=== PATIENT | female | born 1975 | race Caucasian/White ===

== ENCOUNTER 2024-05-25 11:16 | Emergency (ER) | payer OTHER, SELFPAY ==
[2024-05-25] VITALS (8 sets, daily range): BP systolic 139–155; BP diastolic 82–100; BMI 36.7
--- NOTE | 2024-05-25 12:39 | EDRN ---
Unable to obtain IV access or labs w/IV VAT RN called and responded will be down.
--- NOTE | 2024-05-25 12:42 | EDRN ---
Rosana REBOLLEDO in room w/pt.
--- NOTE | 2024-05-25 12:47 | EDRN ---
IV VAT RN in room w/pt at this time.
[2024-05-25 13:11] LABS: % Basophils 0.6 % (0-2); % Eosinophils 0.4 % (0-6); % Lymphocytes 33.8 % (20.5-51.1); % Monocytes 8.7 % (1.7-9.3); % Neutrophils 56.5 % (42.2-75.2); Absolute Lymphocytes 1.6 10^3/uL (1.2-3.4); Absolute Monocytes 0.4 10^3/uL (0.1-0.6); Absolute Neutrophils 2.6 10^3/uL (1.4-6.5); Hematocrit 38.4 % (37.0-47.0); Hemoglobin 14.2 g/dL (12.0-16.0); Mean Corpuscular Hgb 30.5 pg (27.0-31.0); Mean Corpuscular Volume 82.4 fL (81.0-99.0); Mean Platelet Volume 8.9 fL (7.4-10.4); Nucleated Red Blood Cells % 0 %; Platelet Count 341 10^3/uL (130-400); Red Blood Cell Count 4.66 10^6/uL (4.20-5.40); Red Cell Dist. Width 11.9 % (11.5-14.5); White Blood Cell Count 4.6 10^3/uL (4.8-10.8)
--- NOTE | 2024-05-25 13:45 | EDRN ---
Pt requested to drink, Rosana REBOLLEDO said pt could and pt received a cup of water at this time.
[2024-05-25 14:12] LABS: HCG, Serum Qualitative Screen Negative
[2024-05-25 14:23] LABS: ALT (SGPT) 19 U/L (0-35); AST (SGOT) 28 U/L (14-36); Albumin 4.7 g/dl (3.5-5.0); Alkaline Phosphatase 58 U/L (38-126); Blood Urea Nitrogen 10 mg/dl (7-17); Calcium 9.7 mg/dl (8.4-10.2); Carbon Dioxide 28 mmol/L (22-30); Chloride 98 mmol/L (98-107); Estimated Creatinine Clearance 112 ml/min; Glucose 95 mg/dl (70-99); Potassium 3.7 mmol/L (3.5-5.1); Sodium 137 mmol/L (135-145); Total Bilirubin 1.1 mg/dl (0.2-1.3); Total Protein 7.8 g/dl (6.3-8.2); eGFR > 60.00
[2024-05-25 14:28] LABS: Troponin I < 0.012 ng/ml
--- NOTE | 2024-05-25 15:14 | EDRN ---
Rosana REBOLLEDO in room w/pt at this time.
--- NOTE | 2024-05-25 15:44 | ED.GENMED ---
History of Present Illness
General
Chief Complaint: Chest Pain
Source: patient and spouse
Exam Limitations: none
Time Seen by Provider: 05/25/24 12:04
Nursing documentation reviewed up to this point in time: agreed with
History of Present Illness
History of Present Illness:
Patient is a 48-year-old female with past medical history of anxiety and panic disorder as well as hypertension presenting to the emergency department today with concerns of chest tightness over the past few days. Denies significant shortness of
breath. But does have some increased pressure with deep breaths. Has been going through a lot of stress recently was recently started on hydrochlorothiazide for high blood pressure. Denies nausea vomiting numbness weakness.
Review of Systems
Review of Systems
Allergies reviewed?: Yes
All Other Systems: ROS reviewed and negative except as documented in HPI and ROS
Phy Exam
Physical Exam
Physical Exam:
GENERAL: Alert , in no apparent distress
EYE: pupils equal and reactive
NECK: Supple, no significant adenopathy.
ENT: o/p clr, mmm.
CARDIAC: Regular rate and rhythm .
LUNGS: Clear breath sounds bilaterally, no acute respiratory distress, no wheezes/rales/rhonchi
ABDOMEN: Soft, without focal tenderness, no r/g, no cvat
NEUROLOGICAL: Alert and oriented, no focal neuro deficits
SKIN: Warm and dry, skin intact.
MUSCULOSKELETAL: No edema, well perfused.
PSYCH: Normal and appropriate interaction.
Scores
Heart Score for Chest Pain Patients
STEMI patient?: No
History: Slightly or Non-Suspicious
ECG: Normal
Age: >45 - <65 years
Risk Factors: 1 or 2 Risk Factors
Troponin: </= Normal Limit
Heart Score for Chest Pain Patients: 2
Heart Score Risk: 2.5% MACE over next 6 weeks
Course
Orders/Labs/Results
Orders:
Orders
05/25/24 11:18
Electrocardiogram (*1) Urgent
Reason for Study: Chest Pain
EKG- Treatment ONCE
05/25/24 12:08
Cardiac Monitoring- Treatment ONCE
05/25/24 12:14
Chest [CR Chest - 2 Views ] Urgent
Comment:
Reason For Exam: cp
05/25/24 12:25
Test Result ONCE
05/25/24 12:59
Complete Blood Count/With Diff Urgent
05/25/24 13:58
Comprehensive Metabolic Panel Urgent
HCG, Serum Qualitative Screen Urgent
Troponin I Urgent
Abnormal Lab Results
05/25/24
12:59
WBC 4.6 L 10^3/uL
(4.8-10.8)
05/25/24 12:59
05/25/24 13:58
Vital Signs
Initial and Last Documented VS:
Initial Vital Signs
Temp Pulse Resp BP Pulse Ox
98.2 F 82 18 155/100 98
05/25/24 11:22 05/25/24 11:22 05/25/24 11:22 05/25/24 11:22 05/25/24 11:22
Last Documented Vital Signs
Temp Pulse Resp BP Pulse Ox
98.2 F 66 13 139/82 98
05/25/24 11:22 05/25/24 15:00 05/25/24 15:00 05/25/24 15:00 05/25/24 15:00
MDM/Problems Addressed
MDM/Problems Addressed:
48-year-old female presenting to the emergency department today with concerns of chest tightness for multiple days. Not specifically exertional no ongoing shortness of breath nausea vomiting diaphoresis. Upon arrival blood pressure mildly elevated
otherwise vital signs are normal. Labs were obtained and normal troponin normal EKG normal and chest x-ray normal. Patient very low risk for any ACS or PE and PERC negative. Patient may have symptoms secondary to anxiety was advised for close
outpatient follow-up return precautions given.
*Critical Care Note
Total Time (30-74mins, 75-104mins- exclusive of procedures): Not Applicable
ED Attending Note
-
Portions of this chart may have been created with voice recognition software.� Occasional wrong word or��sound alike� substitutions may have occurred due to the inherent limitations of voice recognition software.
Discharge Plan
Departure
Patient Disposition: Home (Routine Discharge)
Date of Disposition: 05/25/24
Time of Disposition: 15:46
Patient with high blood pressure during this ER visit?: No
Condition: Good
Covid-19: Not Applicable
Discharge Problem:
Chest pain
Instructions: Chest Pain PCP Follow Up
Prescriptions:
New
famotidine 20 mg tablet
20 mg PO BID Qty: 14 0RF
ibuprofen 600 mg tablet
600 mg PO Q8H PRN (Reason: Pain) Qty: 10 0RF
alprazolam [Xanax] 0.25 mg tablet
0.25 mg PO BID PRN (Reason: anxiety) Qty: 5 0RF
Referrals:
Camilo Prater MD [Active] - Follow up in 1 week
Sandee Casillas DO [Family Provider] -
Activity Restrictions/Additional Instructions:
You came to the emergency department today with concerns of chest tightness. Here you had a reassuring assessment. Please follow closely as an outpatient. Return to the emergency department for any worsening, new or concerning symptoms.
Interventions
Interventions:
*Risk Screen - Suicide Last Done: 05/25/24 11:22
*General Assessment Last Done: 05/25/24 12:14
*Neglect/Abuse Screening Last Done: 05/25/24 11:22
ED- Fall Risk Assessment Last Done: 05/25/24 12:14
*ED COVID-19 Vaccine History Last Done: 05/25/24 12:14
ED- Cardiac Assessment Last Done: 05/25/24 12:14
Discharge Date and Time
Print Language: BENINESE
== END 2024-05-25 15:55 | disposition home or self-care (01) ==
LOC: EMR 11:16
PROVIDERS: Physician Assistant; EMERGENCY PHYSICIAN Emergency Medicine; FAMILY PHYSICIAN Internal Medicine
DX: R07.89 Other chest pain (principal); F41.9 Anxiety disorder, unspecified; I10 Essential (primary) hypertension
CPT/HCPCS: 99285; 71046; 80053; 84484; 84703; 85025; 93005

== ENCOUNTER 2024-05-25 21:26 | Observation (INO) | payer OTHER, SELFPAY ==
[2024-05-25 19:03] VITALS: BP 106/70
[2024-05-25 19:05] VITALS: BMI 36.5
--- NOTE | 2024-05-25 19:21 | ED.GENMED ---
History of Present Illness
General
Chief Complaint: Fainting/Passed Out
Source: patient
Exam Limitations: none
Time Seen by Provider: 05/25/24 19:10
History of Present Illness
History of Present Illness:
This is a 48 year old female that comes in with c/o syncope. States that she was here earlier today with chest pressure. States that she was discharged with Xanax, Pepcid and Ibuprofen. States that they went to get the medication and then went home.
States that they were sitting at the table and she went to get up and she passed out. States that she must have sat down in the chair and when she woke up her head was on the table. States that she was told that she was out for about 1 min. States
that she has chest pressure, slight SOB, headache, lightheadedness. Patient has 324 of aspirin by EMS. Denies any fever, chills, abd pain, nausea, vomiting, diarrhea, urinary burning.
Past History
Past History
ED Past Medical History: Asthma (with allergies), HTN and Psychiatric (Anxiety, Panic disorder)
ED Past Surgical History: Gynecological (D&C)
Social History
Tobacco: Non-smoker
Alcohol: Occasional
Personal:
Living: with family
Review of Systems
Review of Systems
All Other Systems: ROS reviewed and negative except as documented in HPI and ROS
Constitutional: Reports chills; Denies fever
EENT: Reports no symptoms
Respiratory: Reports trouble breathing; Denies cough
Cardiac: Reports chest pain
ABD/GI: Reports no symptoms; Denies abdominal pain, nausea, vomiting or diarrhea
: Reports no symptoms; Denies dysuria, frequency or urgency
Musculoskeletal: Reports no symptoms
Skin: Reports no symptoms
Neurological: Reports dizzy (Lightheaded) and headache
Psychiatric: Reports no symptoms
Phy Exam
General Physical Exam
General Presentation: well appearing and no apparent distress
General age: appears stated age
General Skin: warm and dry
General Habitus: normal
General Mental: alert
General Hydration: appears well hydrated
ENT Exam
ENT Exam: TM's normal, pharynx normal and neck supple
Eye Exam
Eye Exam: EOMI
Cardiovascular Exam
Cardiovascular Exam: regular rate/rhythm, no edema, no murmur and normal peripheral pulses
Pulmonary Exam
Pulmonary Exam: lungs clear, no respiratory distress, no rales, chest non tender, no crackles, no rhonchi, no wheezing and no cough
Gastrointestinal Exam
Gastrointestinal Exam: normal bowel sounds, non tender, soft, no organomegaly, no pulsatile mass and non distended
Musculoskeletal Exam
Musculoskeletal Exam: full ROM and no edema
Skin Exam
Skin Exam: normal color, warm/dry, no rash and no petechia
Psychiatric Exam
Psychiatric Exam: normal mood/affect
Course
Orders/Labs/Results
Orders:
Orders
05/25/24 19:02
EKG [Electrocardiogram (*1)] Urgent
Reason for Study: Syncope
05/25/24 19:03
EKG- Treatment ONCE
05/25/24 19:13
Cardiac Monitoring- Treatment ONCE
IV Insert/Care/Rem.- Treatment PRN
O2 Therapy [RESP] Urgent
Titrate/Wean O2 to maintain O2 sat greater than (%): 90
Special Instructions: Maintain sats >/=90%
Pulse Ox/spot Check [RESP] Urgent
Quantity: 1
Special Instructions: ON ROOM AIR
05/25/24 19:14
Complete Blood Count/With Diff Urgent
Troponin I Urgent
05/25/24 19:21
Orthostatic VS- Treatment ONCE
0.9% Sodium Chloride 500 ml [Nss] 500 ml IV BOLUS
05/25/24 19:32
Aspirin 325 mg PO NOW STA
05/25/24 19:34
Urinalysis Reflex To Culture Urgent
Date Specimen was Collected: 05/25/24
Time Specimen was Collected: 19:31
Urine Microscopic Reflex Cult Urgent
05/25/24 19:40
Comprehensive Metabolic Panel Urgent
05/25/24 20:05
Morphine Sulfate 2 mg IV NOW STA
Abnormal Lab Results
05/25/24 05/25/24 05/25/24
19:14 19:34 19:40
Hct 35.8 L %
(37.0-47.0)
Potassium 3.0 L mmol/L
(3.5-5.1)
Glucose 130 H mg/dl
(70-99)
Urine Ketones 2+ A
(Negative)
Ur Occult Blood Reflex 1+ A
(Negative)
Urine RBC 3-6 A /HPF
(0-2)
Urine Bacteria (Reflex) Few A
(Negative)
05/25/24 19:14
05/25/24 19:40
Hypokalemia, Glucose nonfasting. Urine negative for infection. Troponin <0.012,
Vital Signs
Initial and Last Documented VS:
Initial Vital Signs
Temp Pulse Resp BP Pulse Ox
98 F 70 14 106/70 100
05/25/24 19:03 05/25/24 19:03 05/25/24 19:03 05/25/24 19:03 05/25/24 19:03
Last Documented Vital Signs
Temp Pulse Resp BP Pulse Ox
98 F 70 11 111/80 99
05/25/24 19:03 05/25/24 20:00 05/25/24 20:00 05/25/24 20:00 05/25/24 20:00
MDM/Problems Addressed
Differential Diagnosis Includes:
Syncope, Cardiac arrhythmia
MDM/Problems Addressed:
This is a 48 year old female that was here earlier today with chest pressure. Patient was discharged and told to follow up with the [employer]. Patient got her medication that she was prescribed and went home to eat. States that she went to get up
from the table and passed out. State that she was told she was out for about 1 min and that she must have sat down in the chair. States that she still has chest pressure.
Will repeat labs, orthostatic and admit
Back into see patient. Explained that again her blood work is normal. Will admit patient for further evaluation. Hospitalist notified.
Chronic conditions affecting care: HTN
Acute Exacerbation and/or Progression of Chronic Illness:
NA
*Pulse Oximetry
Patient hypoxic: no
*EKG
Interpreted by ED Provider?: Yes
Heart Rate: 70
Rate: normal
Rhythm: sinus
[place]: left axis deviation
Interval: normal interval
QRS Pattern: normal QRS
Ischemia: no ischemia (Checked by Aby)
*Inspector Machine Cut Glass Interpretation
Rate: normal
Heart Rate: 80
*Critical Care Note
Total Time (30-74mins, 75-104mins- exclusive of procedures): Not Applicable
ED Attending Note
-
Portions of this chart may have been created with voice recognition software.� Occasional wrong word or��sound alike� substitutions may have occurred due to the inherent limitations of voice recognition software.
Discharge Plan
Departure
Patient Disposition: Admit
Date of Disposition: 05/25/24
Time of Disposition: 20:12
Admit to: Telemetry
Presentation/result/management discussed w/ accepting MD/DO: Hospitalist
Patient with high blood pressure during this ER visit?: No
Condition: Good
Covid-19: Not Applicable
Discharge Problem:
Chest pain, Syncope and collapse
Prescriptions:
No Action
famotidine 20 mg tablet
20 mg PO BID Qty: 14 0RF
ibuprofen 600 mg tablet
600 mg PO Q8H PRN (Reason: Pain) Qty: 10 0RF
alprazolam [Xanax] 0.25 mg tablet
0.25 mg PO BID PRN (Reason: anxiety) Qty: 5 0RF
multivitamin Tablet
1 tab PO DAILY
cetirizine [Zyrtec] 10 mg Tablet
10 mg PO DAILY
fluticasone propionate [Flonase] 50 mcg/actuation [place],Suspension
1 spray INTRANASAL DAILY
zinc
1 tab PO DAILY
Referrals:
Sandee Casillas DO [Family Provider] -
Interventions
Interventions:
*Risk Screen - Suicide Last Done: 05/25/24 19:03
*General Assessment Last Done: 05/25/24 19:03
*Neglect/Abuse Screening Last Done: 05/25/24 19:03
ED- Fall Risk Assessment Last Done: 05/25/24 19:23
*ED COVID-19 Vaccine History Last Done: 05/25/24 19:03
ED- Cardiac Assessment Last Done: 05/25/24 19:21
ED- Neurological Assessment Last Done: 05/25/24 19:21
Discharge Date and Time
Print Language: CZECH
[2024-05-25 19:22] LABS: % Basophils 0.6 % (0-2); % Eosinophils 0.8 % (0-6); % Immature Granulocytes 0.2 % (0-0.5); % Lymphocytes 40.5 % (20.5-51.1); % Monocytes 7.9 % (1.7-9.3); Absolute Lymphocytes 2.1 10^3/uL (1.2-3.4); Absolute Monocytes 0.4 10^3/uL (0.1-0.6); Absolute Neutrophils 2.6 10^3/uL (1.4-6.5); Hematocrit 35.8 % (37.0-47.0); Hemoglobin 13.2 g/dL (12.0-16.0); Mean Corp Hgb Conc. 36.9 g/dL (33.0-37.0); Mean Corpuscular Hgb 30.3 pg (27.0-31.0); Mean Corpuscular Volume 82.1 fL (81.0-99.0); Mean Platelet Volume 8.8 fL (7.4-10.4); Nucleated Red Blood Cells % 0 %; Platelet Count 337 10^3/uL (130-400); Red Blood Cell Count 4.36 10^6/uL (4.20-5.40); Red Cell Dist. Width 11.9 % (11.5-14.5); White Blood Cell Count 5.1 10^3/uL (4.8-10.8)
[2024-05-25 19:26] VITALS: BP 100/73; BP 105/76; BP 95/66; PULSE 62; PULSE 70; PULSE 92
--- NOTE | 2024-05-25 19:29 | EDRN ---
During ortho signs, pt's main complaint was increased pressure in her abd when she went from laying to sitting. Upon further questions, pt said she felt a little lightheaded changing all positions. Pt ambulatory to bathroom, gait steady
[2024-05-25] MEDS: NSS 500 IV (19:42)
[2024-05-25 19:45] LABS: Troponin I < 0.012 ng/ml
[2024-05-25 19:50] LABS: Urine Albumin Negative (Neg - Trace); Urine Bilirubin Negative (Negative); Urine Character Clear (Clear); Urine Color Yellow; Urine Glucose Negative (Negative); Urine Ketone 2+ (Negative); Urine Leukocyte Negative (Negative); Urine Nitrite Negative (Negative); Urine Occult Blood 1+ (Negative); Urine Urobilinogen Negative (Neg - 1+)
[2024-05-25 20:00] VITALS: BP 111/80
[2024-05-25 20:03] LABS: ALT (SGPT) 20 U/L (0-35); AST (SGOT) 29 U/L (14-36); Albumin 4.8 g/dl (3.5-5.0); Alkaline Phosphatase 52 U/L (38-126); Blood Urea Nitrogen 12 mg/dl (7-17); Calcium 9.8 mg/dl (8.4-10.2); Carbon Dioxide 28 mmol/L (22-30); Chloride 99 mmol/L (98-107); Estimated Creatinine Clearance 87 ml/min; Glucose 130 mg/dl (70-99); Sodium 136 mmol/L (135-145); Total Bilirubin 1.1 mg/dl (0.2-1.3); Total Protein 7.7 g/dl (6.3-8.2); eGFR > 60.00
[2024-05-25 20:06] LABS: Urine Bacteria Few (Negative); Urine White Cell 0-2 /HPF (0-5)
--- NOTE | 2024-05-25 20:13 | HPS.HSE ---
Addendum entered and electronically signed by Cheli Norton DO 05/26/24 00:32:
CT chest negative for PE- incidental findings Questionable 1 cm left lobe thyroid nodule. Possibly artifact.
-Team in the morning to address incidental findings- Recommend follow-up nonemergent ultrasound thyroid.
-check TSH as well
Addendum entered and electronically signed by Cheli Norton DO 05/25/24 22:16:
The patient is seen and examined. I have reviewed the patient with Tawnya REBOLLEDO, and agree with her history and physical, assessment and plan of care as per below with the following additions/assessments:
CP has been fairly consistent for the past several days, 2 episodes of syncope in the past day, and there is prodromal symptoms of lightheadedness associated with syncope episodes, also associated with some SOB with exertion. She has had 5
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 Her dad and brother have Hereditary Hemorrhagic Telangiectasias, with family history of clotting and bleeding. She has had occasional nosebleeds but not recently. No current bleeding.
VSS, AF, Lungs CTA bl, no costochondral pain, no musculoskeletal chest pain, CV RRR, no m/r/g
#Chest pain, atypical for ACS, concern is for possible PE versus cardiogenic etiology for syncope, pending CT of the chest to rule out PE
#Family history of HHT, personal history of 5 miscarriages
-monitor overnight on tele to rule out dysrhythmia, replete K, Mg pending and replete if needed, check echocardiogram, IVF, hold HCTZ, CT chest pending, and Cards Cx appreciated
Original Note:
Family Physician
-
Family Physician: Sandee Casillas DO
Chief Complaint
-
Syncope
History of Present Illness
Patient is a 48 y/o female with a PMH of essential HTN, anxiety and panic disorder who reports to the ED for a syncopal episode. Patient was in the ED earlier today for chest pressure and was discharged with the diagnosis of anxiety. She states that
after eating dinner she went to get up to go to the bathroom when she loss consciousness. Her states that she never actually got up, her eyes rolled back and she pitched forward towards the table. states she lost consciousness for
about a minute, but then had a second episode which lasted less than a minute. She denies history of syncope. She has had the chest pressure since May 21. She went to urgent care and was prescribed HCTZ for her high blood pressure, which she has
been taking for the past 4 days. Patient admits to lightheadedness and states she hasn't been eating a lot due to the chest pressure. She denies palpitations, shortness of breath, abdominal pain, nausea, vomiting, diarrhea, peripheral edema, calf
pain, and pleuritic chest pain. She denies recent travel, surgeries, or hospitalizations. She denies taking OCPs, or hormone replacement therapy.
Medical History
Past Medical History
Past Medical History: Reports Other
Additional Past Medical History:
Essential Hypertension
Anxiety/Panic Disorder
Past Surgical History: Reports Other
Additional Past Surgical History:
[place] Teeth
D&C
Social History
Tobacco: Non-smoker
Family History
Family History: Other (Father and Brother with Hereditary Hemorrhagic Telangiectasias)
Allergies / Home Medications
Allergies reflects when Allergies were last updated in [facility].
Home Medications with original date entered in [facility]
Allergy/Medication List:
Allergies
Allergy/AdvReac Type Severity Reaction Status Date / Time
Penicillins Allergy Hives Verified 05/25/24 19:12
Home Medications
alprazolam 0.25 mg tablet (Xanax) 0.25 mg PO BID PRN anxiety #5 tabs 05/25/24
cetirizine 10 mg tablet (Zyrtec) 10 mg PO DAILY 05/25/24
famotidine 20 mg tablet 20 mg PO BID #14 tabs 05/25/24
fluticasone propionate 50 mcg/actuation nasal spray,suspension 1 spray intranasal DAILY 05/25/24
hydrochlorothiazide 12.5 mg tablet 12.5 mg PO DAILY 05/25/24
ibuprofen 600 mg tablet 600 mg PO Q8H PRN Pain #10 tabs 05/25/24
multivitamin 1 tab PO DAILY 05/25/24
zinc 1 tab PO DAILY 05/25/24
Review of Systems
-
A 12 point ROS was completed and negative except as noted: Yes
Constitutional: Denies Fever or Chills
Respiratory: Denies Cough or Trouble Breathing
Cardiac: Reports Chest Pain and Syncope; Denies Palpitations
Physical Exam
Vital Signs
Vital Signs
Temp Pulse Resp BP Pulse Ox
98 F 70 11 111/80 99
05/25/24 19:03 05/25/24 20:00 05/25/24 20:00 05/25/24 20:00 05/25/24 20:00
Physical Exam
General: Comfortable and Conversant
HEENT: Anicteric and Moist mucous membranes
Respiratory: Clear and Non Labored Respirations
Cardiac: S1/S2 and Regular Rhythm; No Tachycardia
GI: Soft and Non Tender
Musculoskeletal: No Clubbing, No Cyanosis, No Edema and Other (No calf tenderness)
Skin: Warm and Dry
Neuro: Awake, Alert, Oriented and Nonfocal/grossly intact
Laboratory Results
-
05/25/24 19:14
05/25/24 19:40
Laboratory Results
Total Bilirubin 1.1 mg/dl (0.2-1.3) 05/25/24 19:40
AST 29 U/L (14-36) 05/25/24 19:40
ALT 20 U/L (0-35) 05/25/24 19:40
Alkaline Phosphatase 52 U/L (38-126) 05/25/24 19:40
Troponin I < 0.012 ng/ml 05/25/24 19:14
Data Reviewed
-
Lab Data: Labs Reviewed by me
Impression/Plan
-
Chest Pressure with Syncope
-Consult Cardiology
-Monitor on Telemetry
-Monitor orthostatic VS
-Continue IVFs
-Check PE Study
-Check Echo
Essential Hypertension
-Discontinue HCTZ
-BP stable at present time - If BP trends upwards consider starting alternate medication
DVT proph: SCDs
Code Status: Full Code
[2024-05-25] MEDS: MORPHINE SULFATE 2 MG IV (20:19)
[2024-05-25] MEDS: KCL 40 MEQ PO (20:38)
[2024-05-25 21:00] VITALS: BP 124/82
[2024-05-25 22:00] VITALS: BP 129/82
--- NOTE | 2024-05-25 22:00 | EDRN ---
Dr Norton wants a CT of pt's chest before pt goes to her room.
[2024-05-25 23:05] VITALS: BMI 36.4
[2024-05-25 23:15] VITALS: BP 136/84; BP 143/88; BP 146/87; PULSE 64; PULSE 69; PULSE 72
[2024-05-25] MEDS: NSS 1000 IV (23:40)
[2024-05-26 03:00] VITALS: BP 106/67
[2024-05-26 07:05] VITALS: BP 148/80
[2024-05-26] MEDS: PEPCID 20 MG PO ×2 (07:37→20:29)
[2024-05-26 08:04] LABS: Blood Urea Nitrogen 11 mg/dl (7-17); Calcium 9.1 mg/dl (8.4-10.2); Carbon Dioxide 27 mmol/L (22-30); Chloride 103 mmol/L (98-107); Estimated Creatinine Clearance 112 ml/min; Glucose 91 mg/dl (70-99); Magnesium 1.9 mg/dl (1.6-2.3); Potassium 3.9 mmol/L (3.5-5.1); Sodium 136 mmol/L (135-145); eGFR > 60.00
[2024-05-26 08:27] LABS: TSH 1.54 uIU/ml (0.47-4.68)
--- NOTE | 2024-05-26 10:15 | CON.CAR ---
Addendum entered and electronically signed by Shan Sellers MD 05/26/24 13:45:
48 yo female with PMH of anxiety, recent diagnosis of HTN. She was started on HCTZ last week. Had 2 episodes of syncope yesterday after dinner, when attempted to get up to use restroom. Also approx 1-2 week history of stabbing chest pain, not
related to activity. She was noted to be hypokalemic. She was given IV fluids, and K was repleted. Exam with RRR, no murmurs, no edema. EKG and tele show NSR. TnI <0.012.
Syncope. Perhaps related to new start HCTZ, volume depletion.
-stop HCTZ
-s/p IV fluids
-check echo
-monitor tele
-if unremarkable, would rec 2 week outpatient monitor
Chest pain
-does not appear to be ACS; seems to be separate issue from syncope
-if echo is normal, will proceed with stress echo tomorrow
HTN
-cont to monitor off of HCTZ (would not resume)
-if remains elevated, can start amlodipine
Original Note:
Consultation
Consultation Request
Date/Time Consultation Requested: 05/25/2024, 11 PM
Date/Time Consultation Performed: 05/26/2024, 9:15 AM.
Requesting Provider: Tawnya Balderrama PA-C
Performing Provider: Meagan Carmona for Shan Fan
Reason for Consultation: Syncope, chest pressure.
Medical History
-
Chief Complaint: Syncope, chest pressure.
History of Present Illness:
48-year-old female with PMHx Significant for anxiety, single episode of panic disorder (5 years ago) miscarriages x 5 and recent diagnosis of new onset systemic hypertension (05/21/2024) presents to the emergency room in the a.m. on 05/25/2024 for
severe retrosternal chest tightness about 7-9 out of 10 in intensity radiating into her upper back and was sent home on a few medications. She presents later on the same day in the p.m. to the ER with syncopal episodes x 2. Each syncopal episode
lasted for about a minute. She initially felt lightheaded and dizzy when eating her dinner with her family, and right after finishing her dinner she passed out briefly for 1 minute while being witnessed by her family. When she woke up she vaguely
remembers responding to people around her, but was not aware of the situation for few minutes. Reports vaguely feeling heavy in her limbs with some numbness. Eventually she woke up and tried to walk to the bathroom and did not make up to the
bathroom as she had another episode of syncope which also lasted for 1 minute. She was noted aware of LOC, and ended up in the ER. Denies bowel or bladder incontinence during her syncopal episodes-she does not recall the episode but she reports
that from what was told to her by her .
She has been experiencing retrosternal chest pressure and tightness for 2 weeks, with episodic waxing and waning heavy jab like sensation of chest pain each episode lasting for 15 to 20 minutes, and when her chest pain started it was about 3 out of
10 in intensity and it progressively worsened to 7-9/10 in intensity when she sought ER visit. She also went to urgent care on 05/21/2024 for her retrosternal chest pain when she was first diagnosed with systemic hypertension and was given HCTZ 25
mg. She reports to have occasional heart racing or jitteriness over the last 7 to 10 days when she had the symptoms.
Reports that she had similar symptoms of chest pressure and jitteriness, diffuse sweating about 5 years ago x 1 episode and was diagnosed with panic attacks. But she never had any such symptoms until the last 2 weeks.
Of note, she had 5 miscarriages, and reports seeing reproductive and hematology team at [facility] but does not recall being told about any diagnosis of hypercoagulable state.
Past Medical History
Past Medical History: HTN and Other (Anxiety disorder and questionable panic attacks.)
Past Surgical History: Other (D&C, D&A.)
Social History
Tobacco: Non-Smoker
Alcohol: Occasional
Drug: Marijuana (Marijuana Gummies very occasionally states once in the morning like.)
Personal:
Living: With Family
Employment: Employed (construction operations manager.)
Family History
Family History: Other (Father has history of hypertension, CAD diagnosed at 72. Family history of hereditary hemorrhagic telangiectasias in father and brother.)
Allergies / Home Medications
Allergy/AdvReac Type Severity Reaction Status Date / Time
Penicillins Allergy Hives Verified 05/25/24 19:12
�Medication �Instructions �Recorded �Confirmed �Type
alprazolam 0.25 mg tablet (Xanax) 0.25 mg PO BID PRN anxiety #5 tabs 05/25/24 05/25/24 Rx
cetirizine 10 mg tablet (Zyrtec) 10 mg PO DAILY allergies 05/25/24 05/25/24 History
famotidine 20 mg tablet 20 mg PO BID #14 tabs 05/25/24 05/25/24 Rx
fluticasone propionate 50 1 spray intranasal DAILY allergies 05/25/24 05/25/24 History
mcg/actuation nasal
spray,suspension
hydrochlorothiazide 12.5 mg tablet 12.5 mg PO DAILY Blood Pressure 05/25/24 05/25/24 History
ibuprofen 600 mg tablet 600 mg PO Q8H PRN Pain #10 tabs 05/25/24 05/25/24 Rx
multivitamin 1 tab PO DAILY Supplement 05/25/24 05/25/24 History
zinc 1 tab PO DAILY Supplement 05/25/24 05/25/24 History
Review of Systems
-
History Source: Patient
Constitutional: No Symptoms
Respiratory: No Symptoms
Cardiac: Chest Pain (Improved to 3/10 today.)
Abdomen/GI: No Symptoms
: No Symptoms
Musculoskeletal: No Symptoms
Skin: No Symptoms
Neurological: Dizzy (Improved.)
Endocrine: No Symptoms
Hematologic/Lymphatic: No Symptoms
Physical Exam
Vital Signs
Temp Pulse Resp BP Pulse Ox
98.0 F 57 16 148/80 98
05/26/24 07:05 05/26/24 07:05 05/26/24 07:05 05/26/24 07:05 05/26/24 07:05
Lab Results
05/25/24 19:14
05/26/24 06:37
Troponin I < 0.012 ng/ml 05/25/24 19:14
Physical Exam
Cardiac: S1/S2 and Regular Rhythm; Negative Murmur, Rub or JVD
GI: Soft, Non Tender, Non Distended and Normal Bowel Sounds
Musculoskeletal: No Clubbing and No Edema
Neuro: AO x 3
Psych: Calm
Impression / Plan
-
Background-
48-year-old female with PMHx of anxiety, panic attacks and a recent onset systemic hypertension presents to the emergency room for evaluation of syncopal episodes x 2 within an hour, chest pressure like sensation x 2 weeks.
Impression -
Syncope -
-Syncope in the setting of prolonged chest pain and pressure can be secondary to cardiac or neurological etiologies.
-EKG-shows sinus arrhythmia and patient's telemetry shows sinus arrhythmia.
-Will evaluate patient with echocardiogram, pending echo results.
-Will consider external monitor recording for 2 weeks for evaluation of arrhythmias.
-Also consider neurological evaluation for syncope.
Chest pain-
-Likely atypical, troponins negative.
-No evidence of ST changes on EKG.
-No evidence for PE, aorta appears normal on CT scan.
-Plan for stress echocardiogram in the a.m. tomorrow pending 2D echo results.
Systemic hypertension-
-New diagnosis, patient on HCTZ took 4 doses.
-Currently HCTZ on hold.
-Recommend AUDREY/ARB or dihydropyridine CCB for blood pressure control.
Hypokalemia-
-Resolved.
PMHx of anxiety and panic attacks.
Subjective-
Chest pain improved (01/19).
Data reviewed -
Telemetry-05/26/2024-sinus arrhythmia and sinus bradycardia.
EKG-05/25/2024-nonspecific T wave changes.
Data Reviewed
-
EKG: Tracing Personally Visualized and interpreted
Labs: Labs Reviewed by me
Old Records: Reviewed
[2024-05-26 11:00] VITALS: BP 129/77; BP 152/89; BP 153/95; PULSE 71; PULSE 72; PULSE 75
--- NOTE | 2024-05-26 11:33 | CM ---
Reviewed the chart notes and spoke with the patient at the bedside. The patient is admitted under observational status. Observational Status letter provided and explained. The patient had no questions with regards to the letter.
The patient resides with her spouse in a three story home with three steps to enter. The patient reports no DME/VN/SNF in the past. The patient confirmed his pharmacy of choice is the [facility]. continues to be available to
patient/family and is monitoring medical plan for needs at discharge.
Plan: Discharge to home when medically stable. No anticipated needs.
[2024-05-26 11:45] LABS: HDL Cholesterol 57 mg/dl; LDL Cholesterol, Calculated 111 mg/dl; Total Cholesterol 179 mg/dl (50-199); Triglyceride 57 mg/dl (10-149); Very Low Density Lipoprotein 11 mg/dl (0-30)
--- NOTE | 2024-05-26 11:45 | W.PN.HOSP.TC ---
Today's Communication/Plan
-
Trend trop
ECHO
Cards recs
OOB/ambulate and observe
Assessment / Plan
Assessment / Plan
Chest Pressure likely 2/2 atypical for ACS vs. anxiety vs. MSK
Syncope likely 2/2 arrythmia vs. orthostatics (recently started on HCTZ)
-Consult Cardiology
-Monitor on Telemetry-no arrhythmias noted so far
-Monitor orthostatic VS-Negative. DC IVF.
-DC further fluids and observe off. Tolerating p.o.
-CT chest is negative for pulmonary embolism.
-EKG with normal sinus rhythm. QTc 434. Ventricular rate 70.
-Trend trop-1st set negative on admission
-Non focal neurological exam-no deficit noted.
Essential Hypertension
-Discontinue HCTZ
-148/80-continue to trend. If persistently elevated can restart different and hypertensive medication compared to HCTZ.
Hypokalemia
Replete and monitor
Questionable thyroid left lobe nodule
TSH within normal limits
Recommended outpatient dedicated thyroid ultrasound-patient verbalized understanding
DVT proph: SCDs
Code Status: Full Code
Anticipated Discharge: Within 24 hours
Subjective/Interval History
-
Date of Service: May 26, 2024
states of chest pressure
No aggravating or alleviating factors
Does state of a lot of stress at work and some midlife problems
Denies lightheaded dizziness or palpitations
Objective Data
-
Labs:
Laboratory Results
05/26/24
06:37
Sodium 136
Potassium 3.9 D
Chloride 103
Carbon Dioxide 27
BUN 11
Creatinine 0.7
Glucose 91
Calcium 9.1
Vital Signs:
Vital Signs
Temp Pulse Resp BP Pulse Ox
98.0 F 57 16 148/80 98
05/26/24 07:05 05/26/24 07:05 05/26/24 07:05 05/26/24 07:05 05/26/24 07:05
I&O
05/25/24 05/26/24 05/27/24
06:59 06:59 06:59
Intake Total 920 / 920
Balance 920 / 920
Physical Exam
-
General: Well Developed and No Apparent Distress
HEENT: Normocephalic, Atraumatic and Moist Mucous Membranes
Respiratory: Clear to Auscultation
Cardiac: Regular Rhythm and S1/S2; Negative Murmur, Rub or Gallop
GI: Soft, Nontender, Nondistended and Normal Bowel Sounds; Negative Organomegaly
Rectal: Deferred by Provider
Musculoskeletal: No Clubbing, No Cyanosis and No Edema
Skin: Negative Rash
Neuro: Awake, Alert, Oriented, AO x 3, No Motor Deficits and Nonfocal/Grossly Intact
Psych: Calm
[2024-05-26 13:46] LABS: Troponin I < 0.012 ng/ml
[2024-05-26 15:10] VITALS: BP 156/99
[2024-05-26 19:00] VITALS: BP 155/101; BP 159/98; BP 169/99; PULSE 70; PULSE 74
[2024-05-26 20:00] LABS: Troponin I < 0.012 ng/ml
[2024-05-26 23:03] VITALS: BP 147/88
[2024-05-27] VITALS (7 sets, daily range): BP systolic 129–166; BP diastolic 72–106; PULSE 64–84
[2024-05-27] MEDS: PEPCID 20 MG PO ×2 (07:25→21:23)
[2024-05-27] MEDS: NORVASC 5 MG PO (08:13)
--- NOTE | 2024-05-27 08:30 | W.PN.CD ---
Addendum entered and electronically signed by Shreyas Day MD 05/27/24 11:01:
Patient seen and examined independently. Patient evaluated at bedside with resident. PGY2
48-year-old woman with recent diagnosis of hypertension who presented with an episode of syncope.. Patient felt as if she needed to go to the bathroom with combination of bowel movement and urination and shortly before she tried to get up to go to
the bathroom she had a syncopal episode. Briefly recovered consciousness in chair and then lost consciousness again. No further episodes has remained asymptomatic during her hospitalization. She did have some complaints of chest discomfort in the
days preceding her hospitalization some of which was worse with taking a deep breath and with eating. She had no exertional symptoms when she was exercising last Sunday. Currently chest pain improved. Troponins have remained negative. CT has
been negative for pulmonary embolism and echocardiogram with normal left ventricular function. Telemetry unremarkable labs notable for potassium 3.0 on admission. Of note patient had recently been started on HCTZ. Exact etiology of syncope
unclear. Possible combination of volume depletion and patient on diuretic along with a vagal episode and patient felt she needed to go to the bathroom. Would also exclude other causes.
-Patient will remain off HCTZ
-Potassium has been replaced but will need to continue to monitor
-Await results of stress echo which was already ordered.
-If no clear etiology determined and patient remains asymptomatic then would plan for additional outpatient cardiac monitoring including 2-week surveillance system monitor.
Original Note:
Today's Communication / Plan
-
Stress echocardiogram pending.
Continue Amlodipine 5mg.
Impression / Plan
-
Background-
48-year-old female with PMHx of anxiety, panic attacks and a recent onset systemic hypertension presents to the emergency room for evaluation of syncopal episodes x 2 within an hour, chest pressure like sensation x 2 weeks.
Impression -
Syncope -
-Syncope in the setting of prolonged chest pain and pressure can be secondary to cardiac or neurological etiologies.
-EKG-shows sinus arrhythmia and patient's telemetry shows sinus arrhythmia.
-normal echo results discussed with the patient. pending stress echo.
- Will reevaluate her with external monitor recording for 2 weeks for evaluation of arrhythmias.
Chest pain-
-Likely atypical, troponins negative.
-No evidence of ST changes on EKG.
-No evidence for PE, aorta appears normal on CT scan.
-Plan for stress echocardiogram today.
Systemic hypertension-
-New diagnosis, patient on HCTZ took 4 doses.
-Currently HCTZ on hold.
-started patient on Amlodipine.
Hypokalemia-
-Resolved.
PMHx of anxiety and panic attacks.
Subjective-
Chest pain improved (01/19).
Data reviewed -
Telemetry-05/27/2024-sinus arrhythmia and sinus bradycardia.
Echocardiogram - 05/26/24 - LVEF - 55-60%, Normal biventricular size and function.
EKG-05/25/2024-nonspecific T wave changes.
Physical Exam
Vital Signs/Labs
Vital Signs
Temp Pulse Resp BP Pulse Ox
97.5 F 70 16 150/95 100
05/27/24 07:36 05/27/24 08:13 05/27/24 07:36 05/27/24 08:13 05/27/24 07:36
05/26/24 05/27/24 05/28/24
06:59 06:59 06:59
Actual Weight 96.071 kg
05/25/24 19:14
05/26/24 06:37
Magnesium 1.9 mg/dl (1.6-2.3) 05/26/24 06:37
Triglycerides 57 mg/dl (10-149) 05/26/24 06:37
LDL Cholesterol, Calc 111 mg/dl 05/26/24 06:37
VLDL Cholesterol, Calc 11 mg/dl (0-30) 05/26/24 06:37
HDL Cholesterol 57 mg/dl 05/26/24 06:37
TSH 1.54 uIU/ml (0.47-4.68) 05/26/24 06:37
LAB Results
05/25/24 05/26/24 05/26/24
19:14 13:09 18:42
Troponin I < 0.012 < 0.012 Cancelled
05/26/24
19:27
Troponin I < 0.012
Physical Exam
Constitutional: Comfortable
Cardiovascular: Rhythm & rate is regular, S1S2 is normal and Murmur/rub/gallop absent
Respiratory: Lungs clear to auscul., Wheeze Absent, Crackles Absent and Rhonchi Absent
GI: Normal bowel sounds
Neuro/Psych: AO x 3
Data Reviewed
-
Date of Service: May 27, 2024
EKG: Tracing Personally Visualized and interpreted
Echo: Report Reviewed by me
X-Ray/CT/US/MRI/NUC/PET: Image Personally Visualized and interpreted
--- NOTE | 2024-05-27 11:28 | W.PN.HOSP.TC ---
Today's Communication/Plan
-
Await stress echo
May require heart monitor on discharge
Cardiology recs
Start BP meds
Assessment / Plan
Assessment / Plan
Chest Pressure likely 2/2 atypical for ACS vs. anxiety vs. MSK
Syncope likely 2/2 arrhythmia vs. orthostatics (recently started on HCTZ)
-Consult Cardiology
-Monitor on Telemetry-no arrhythmias noted so far
-Monitor orthostatic VS-Negative. DC IVF.
-DC further fluids and observe off. Tolerating p.o.
-CT chest is negative for pulmonary embolism.
-EKG with normal sinus rhythm. QTc 434. Ventricular rate 70.
-Trend trop-1st set negative on admission
-Non focal neurological exam-no deficit noted.
-Echocardiogram with normal biventricular size and systolic function without regional wall motion. EF of 55 to 60%. No significant valve disease.
-Plan for stress echo today.
Essential Hypertension
-Discontinue HCTZ
-Blood pressure elevated and started on Norvasc.
Hypokalemia
Replete and monitor
Questionable thyroid left lobe nodule
TSH within normal limits
Recommended outpatient dedicated thyroid ultrasound-patient verbalized understanding
DVT proph: SCDs
Code Status: Full Code
Anticipated Discharge: Within 24 hours
Subjective/Interval History
-
Date of Service: May 27, 2024
States of her nasal allergy symptoms
Intermittent chest discomfort
Objective Data
-
Vital Signs:
Vital Signs
Temp Pulse Resp BP Pulse Ox
97.5 F 70 16 150/95 100
05/27/24 07:36 05/27/24 08:13 05/27/24 07:36 05/27/24 08:13 05/27/24 07:36
I&O
05/26/24 05/27/24 05/28/24
06:59 06:59 06:59
Intake Total 920 / 920 240 / 240
Balance 920 / 920 240 / 240
Physical Exam
-
General: Well Developed and No Apparent Distress
HEENT: Normocephalic, Atraumatic and Moist Mucous Membranes
Respiratory: Clear to Auscultation
Cardiac: Regular Rhythm and S1/S2; Negative Murmur, Rub or Gallop
GI: Soft, Nontender, Nondistended and Normal Bowel Sounds; Negative Organomegaly
Rectal: Deferred by Provider
Musculoskeletal: No Clubbing, No Cyanosis and No Edema
Skin: Negative Rash
Neuro: Awake, Alert, Oriented, AO x 3, No Motor Deficits and Nonfocal/Grossly Intact
Psych: Calm
[2024-05-27] MEDS: CLARITIN 10 MG PO (11:57)
[2024-05-27] MEDS: NON-FORMULARY ITEM 1 UNIT PO (21:23)
--- NOTE | 2024-05-28 03:20 | DOWNTIME ---
There was a [employer] Downtime on 05/28/2024 from 0100 to 05/28/2024 at 0255. Downtime documentation of patient's care, including medication administrations, has been reconciled in the electronic record per guidelines. Refer to the
patient's paper chart under the miscellaneous tab to see printed paper medication records and downtime forms.
[2024-05-28 07:00] VITALS: BP 141/95
[2024-05-28 07:36] LABS: Blood Urea Nitrogen 10 mg/dl (7-17); Calcium 9.5 mg/dl (8.4-10.2); Carbon Dioxide 29 mmol/L (22-30); Chloride 101 mmol/L (98-107); Estimated Creatinine Clearance 112 ml/min; Glucose 96 mg/dl (70-99); Potassium 3.7 mmol/L (3.5-5.1); Sodium 136 mmol/L (135-145); eGFR > 60.00
[2024-05-28 08:00] LABS: % Eosinophils 1.8 % (0-6); % Immature Granulocytes 0.3 % (0-0.5); % Neutrophils 41.9 % (42.2-75.2); Absolute Eosinophils 0.1 10^3/uL (0-0.7); Absolute Lymphocytes 1.8 10^3/uL (1.2-3.4); Absolute Monocytes 0.4 10^3/uL (0.1-0.6); Absolute Neutrophils 1.6 10^3/uL (1.4-6.5); Hematocrit 34.9 % (37.0-47.0); Hemoglobin 12.7 g/dL (12.0-16.0); Mean Corp Hgb Conc. 36.4 g/dL (33.0-37.0); Mean Corpuscular Volume 85.1 fL (81.0-99.0); Mean Platelet Volume 9.5 fL (7.4-10.4); Nucleated Red Blood Cells % 0 %; Platelet Count 328 10^3/uL (130-400); Red Cell Dist. Width 12.2 % (11.5-14.5); White Blood Cell Count 3.9 10^3/uL (4.8-10.8)
[2024-05-28] MEDS: NON-FORMULARY ITEM 1 SPRAY NASAL (08:15)
[2024-05-28] MEDS: NORVASC 5 MG PO (08:15)
[2024-05-28] MEDS: PEPCID 20 MG PO (08:15)
--- NOTE | 2024-05-28 08:37 | W.PN.CD ---
Addendum entered and electronically signed by Shan Sellers MD 05/28/24 11:27:
48 yo female with new diagnosis HTN admitted with syncope. Was recently started on HCTZ prior--now changed to amlodipine. Also complained of non-exertional CP. Exam with RRR, no murmurs, no edema. Echo, stress echo, tele were unremarkable.
She will be discharged on amlodipine 5mg daily for HTN. BP goal under 130/80.
She will follow up as outpatient with us, and we will arrange for 2 week monitor.
Original Note:
Today's Communication / Plan
-
Will arrange for loop recorder on outpatient basis
Impression / Plan
-
Background-
48-year-old female with PMHx of anxiety, panic attacks and a recent onset systemic hypertension presents to the emergency room for evaluation of syncopal episodes x 2 within an hour, chest pressure like sensation x 2 weeks.
Impression -
Syncope -
-Syncope in the setting of prolonged chest pain and pressure can be secondary to cardiac or neurological etiologies.
-EKG-shows sinus arrhythmia and patient's telemetry shows sinus arrhythmia.
-normal echo results discussed with the patient. pending stress echo.
- Will reevaluate her with external monitor recording for 2 weeks for evaluation of arrhythmias.
Chest pain-
-Likely atypical, troponins negative.
-No evidence of ST changes on EKG.
-No evidence for PE, aorta appears normal on CT scan.
-Stress echocardiogram -select intermediate risk study, below average exercise capacity.
-External monitor recorder for 2 weeks.
Systemic hypertension-
-New diagnosis, patient on HCTZ took 4 doses.
-Currently HCTZ on hold.
-started patient on Amlodipine. Advised to monitor BP at home regularly for next 2 weeks before follow up.
Hypokalemia-
-Resolved.
PMHx of anxiety and panic attacks.
Subjective-
Feeling better.
Data reviewed -
Telemetry-05/27/2024-sinus arrhythmia and sinus bradycardia.
Echocardiogram - 05/26/24 - LVEF - 55-60%, Normal biventricular size and function.
Stress echocardiogram-05/27/2024-no evidence of myocardial ischemia, below average exercise capacity, low risk to intermediate risk study.
EKG-05/25/2024-nonspecific T wave changes.
Physical Exam
Vital Signs/Labs
Vital Signs
Temp Pulse Resp BP Pulse Ox
98.2 F 68 18 141/95 98
05/28/24 07:00 05/28/24 08:15 05/28/24 07:00 05/28/24 08:15 05/28/24 07:00
05/28/24 06:41
05/28/24 06:41
Magnesium 1.9 mg/dl (1.6-2.3) 05/26/24 06:37
Triglycerides 57 mg/dl (10-149) 05/26/24 06:37
LDL Cholesterol, Calc 111 mg/dl 05/26/24 06:37
VLDL Cholesterol, Calc 11 mg/dl (0-30) 05/26/24 06:37
HDL Cholesterol 57 mg/dl 05/26/24 06:37
TSH 1.54 uIU/ml (0.47-4.68) 05/26/24 06:37
LAB Results
05/25/24 05/26/24 05/26/24
19:14 13:09 18:42
Troponin I < 0.012 < 0.012 Cancelled
05/26/24
19:27
Troponin I < 0.012
Physical Exam
Constitutional: Comfortable
EENT: Anicteric and Moist mucous membranes
Cardiovascular: Rhythm & rate is regular, Pedal edema present and S1S2 is normal
Respiratory: Respiratory effort normal, Lungs clear to auscul., Wheeze Absent, Crackles Absent and Rhonchi Absent
GI: Distention absent, Non tender and Normal bowel sounds
Neuro/Psych: AO x 3
Data Reviewed
-
Date of Service: May 28, 2024
Medical Decision Making: Reviewed Test Results and Test Interpretation
EKG: Tracing Personally Visualized and interpreted
Echo: Report Reviewed by me
X-Ray/CT/US/MRI/NUC/PET: Report Reviewed by me
Medical Tests (PFT, Pathology etc): Report Reviewed by me
Labs: Labs Reviewed by me
Old Records: Reviewed
--- NOTE | 2024-05-28 11:31 | W.PN.HOSP.TC ---
Today's Communication/Plan
-
Discharge home today
Assessment / Plan
Assessment / Plan
Chest Pressure likely 2/2 atypical for ACS vs. anxiety vs. MSK
Syncope likely 2/2 arrhythmia vs. orthostatics (recently started on HCTZ)
-Consult Cardiology
-Monitor on Telemetry-no arrhythmias noted so far
-Monitor orthostatic VS-Negative. DC IVF.
-DC further fluids and observe off. Tolerating p.o.
-CT chest is negative for pulmonary embolism.
-EKG with normal sinus rhythm. QTc 434. Ventricular rate 70.
-Trend trop-1st set negative on admission
-Non focal neurological exam-no deficit noted.
-Echocardiogram with normal biventricular size and systolic function without regional wall motion. EF of 55 to 60%. No significant valve disease.
-Plan for stress echo today.
05/28
Stress test came back unremarkable.
Discharge home today
Essential Hypertension
-Discontinue HCTZ
-Blood pressure elevated and started on Norvasc.
Hypokalemia
Replete and monitor
Questionable thyroid left lobe nodule
TSH within normal limits
Recommended outpatient dedicated thyroid ultrasound-patient verbalized understanding
DVT proph: SCDs
Code Status: Full Code
Anticipated Discharge: Today
Subjective/Interval History
-
Date of Service: May 28, 2024
Patient seen and examined at bedside, denies any chest pain or shortness of breath, no abdominal pain, no nausea, no vomiting, no diarrhea or constipation.
Cleared for discharge as per cardiology
Objective Data
-
Labs:
Laboratory Results
05/28/24
06:41
WBC 3.9 L
Hgb 12.7
Hct 34.9 L
Plt Count 328
Sodium 136
Potassium 3.7
Chloride 101
Carbon Dioxide 29
BUN 10
Creatinine 0.7
Glucose 96
Calcium 9.5
Vital Signs:
Vital Signs
Temp Pulse Resp BP Pulse Ox
98.2 F 68 18 141/95 98
05/28/24 07:00 05/28/24 08:15 05/28/24 07:00 05/28/24 08:15 05/28/24 07:00
I&O
05/27/24 05/28/24 05/29/24
06:59 06:59 06:59
Intake Total 240 / 240 900 / 900
Balance 240 / 240 900 / 900
Physical Exam
-
General: Well Developed and No Apparent Distress
HEENT: Normocephalic, Atraumatic and Moist Mucous Membranes
Respiratory: Clear to Auscultation
Cardiac: Regular Rhythm and S1/S2; Negative Murmur, Rub or Gallop
GI: Soft, Nontender, Nondistended and Normal Bowel Sounds; Negative Organomegaly
Rectal: Deferred by Provider
Musculoskeletal: No Clubbing, No Cyanosis and No Edema
Skin: Negative Rash
Neuro: Nonfocal/Grossly Intact
--- NOTE | 2024-05-28 11:32 | W.DCSUMMARY ---
Discharge Summary
Discharge Data
Date of Admission: 05/25/24
Date of Discharge: 05/28/24
-
Pending Results: No
Hospital Course
Chest Pressure likely 2/2 atypical for ACS vs. anxiety vs. MSK
Syncope likely 2/2 arrhythmia vs. orthostatics (recently started on HCTZ)
-Consult Cardiology
-Monitor on Telemetry-no arrhythmias noted so far
-Monitor orthostatic VS-Negative. DC IVF.
-DC further fluids and observe off. Tolerating p.o.
-CT chest is negative for pulmonary embolism.
-EKG with normal sinus rhythm. QTc 434. Ventricular rate 70.
-Trend trop-1st set negative on admission
-Non focal neurological exam-no deficit noted.
-Echocardiogram with normal biventricular size and systolic function without regional wall motion. EF of 55 to 60%. No significant valve disease.
-Plan for stress echo today.
05/28
Stress test came back unremarkable.
Discharge home today
Essential Hypertension
-Discontinue HCTZ
-Blood pressure elevated and started on Norvasc.
Hypokalemia
Replete and monitor
Questionable thyroid left lobe nodule
TSH within normal limits
Recommended outpatient dedicated thyroid ultrasound-patient verbalized understanding
DVT proph: SCDs
Code Status: Full Code
Anticipated Discharge: Today
Discharge Plan
-
Patient Disposition: Home (Routine Discharge)
Discharge Diagnosis/Procedures: syncope
Hypertension
Diet: 2 Gram Sodium
Activity: No restrictions
Driving Restrictions: As prior to admission
Bathing Restrictions: None
Others Tests: US thyroid
Activity Restrictions/Additional Instructions:
Questionable 1 cm left lobe thyroid nodule. Possibly artifact. Recommend follow-up nonemergent ultrasound.
Referrals:
Camilo Prater MD [Active] - in one to two weeks
Tere Angel MD [Consulting Staff] - in three to four weeks
Sandee Casillas DO [Family Provider] -
Prescriptions:
New
acetaminophen 325 mg Tablet
650 mg PO Q4HPRN PRN (Reason: mild pain/ fever>100.5F) Qty: 0 0RF
amlodipine 5 mg Tablet
5 mg PO DAILY Qty: 30 2RF
Continued
famotidine 20 mg tablet
20 mg PO BID Qty: 14 0RF
alprazolam [Xanax] 0.25 mg tablet
0.25 mg PO BID PRN (Reason: anxiety) Qty: 5 0RF
multivitamin Tablet
1 tab PO DAILY
cetirizine [Zyrtec] 10 mg Tablet
10 mg PO HS
fluticasone propionate 50 mcg/actuation [place],Suspension
1 spray INTRANASAL DAILY
zinc
1 tab PO DAILY
Discontinued
ibuprofen 600 mg tablet
600 mg PO Q8H PRN (Reason: Pain) Qty: 10 0RF
hydrochlorothiazide 12.5 mg Tablet
12.5 mg PO DAILY
Discharge Orders:
Discharge Patient (As Directed); Ordered 05/28/24
Ordered By: Liz Miller
Discharge Date and Time
Print Language: TU[place]
[2024-05-28 11:54] VITALS: BP 168/98
== END 2024-05-28 12:01 | disposition home or self-care (01) ==
LOC: 3 WEST ACU 21:26
PROVIDERS: Clinical Nurse Specialist Family Health; Hospitalist; Physician Assistant Medical; ADMITTING PHYSICIAN Internal Medicine; ATTENDING PHYSICIAN General Practice; EMERGENCY PHYSICIAN Student in an Organized Health Care Education/Training Program; FAMILY PHYSICIAN Internal Medicine; OTHER PHYSICIAN Internal Medicine
DX: R55 Syncope and collapse (principal); R07.2 Precordial pain; I10 Essential (primary) hypertension; E87.6 Hypokalemia; R07.89 Other chest pain; J45.909 Unspecified asthma, uncomplicated; R20.0 Anesthesia of skin; F41.9 Anxiety disorder, unspecified; F41.0 Panic disorder [episodic paroxysmal anxiety]; R42 Dizziness and giddiness; R51.9 Headache, unspecified; E04.1 Nontoxic single thyroid nodule; Z82.49 Family history of ischemic heart disease and other diseases of the circulatory system; Z83.2 Family history of diseases of the blood and blood-forming organs and certain disorders involving the immune mechanism; Z88.0 Allergy status to penicillin
CPT/HCPCS: 93017; 71275; 80048; 80053; 80061; 81003; 81015; 83735; 84443; 84484; 85025; 93005; 93306; 93350; 96361; 96374; 99285; G0378; Q9967

== ENCOUNTER → 2024-06-20 06:49 | Outpatient (REF) | payer OTHER, SELFPAY | LOC: HWRAD 06:49 | PROVIDERS: ATTENDING PHYSICIAN General Practice; FAMILY PHYSICIAN Internal Medicine | DX: E04.1 Nontoxic single thyroid nodule (principal) | CPT/HCPCS: 76536 ==

== ENCOUNTER → 2024-09-08 09:22 | Outpatient (REF) | payer OTHER, SELFPAY | LOC: HWRAD 09:22 | PROVIDERS: ATTENDING PHYSICIAN Internal Medicine | DX: M79.18 Myalgia, other site (principal) | CPT/HCPCS: 72100; 72190 ==

== ENCOUNTER → 2025-06-12 06:51 | Outpatient (REF) | payer BC, SELFPAY | LOC: HWRAD 06:51 | PROVIDERS: ATTENDING PHYSICIAN Internal Medicine | DX: E04.1 Nontoxic single thyroid nodule (principal) | CPT/HCPCS: 76536 ==

== ENCOUNTER 2025-07-31 06:16 | Day surgery (SDC) | payer BC, SELFPAY | END 2025-07-31 09:00 | disposition home or self-care (01) | LOC: GI 06:16 | PROVIDERS: ATTENDING PHYSICIAN Internal Medicine Gastroenterology; FAMILY PHYSICIAN Internal Medicine | DX: Z12.11 Encounter for screening for malignant neoplasm of colon (principal); K51.40 Inflammatory polyps of colon without complications; K63.5 Polyp of colon; K57.30 Diverticulosis of large intestine without perforation or abscess without bleeding; K64.8 Other hemorrhoids; K64.4 Residual hemorrhoidal skin tags | CPT/HCPCS: 45380; 88305 ==